=== PATIENT | male | born 2000 | race Caucasian/White ===

== ENCOUNTER 2023-10-27 01:10 | Day surgery (SDC) | payer OTHER, SELFPAY ==
[2023-10-18 14:14] VITALS: BMI 26.8
--- NOTE | 2023-10-18 14:30 | PC.NURSE ---
Report to the Outpatient Waiting Room, entrance under the green pavilion located off [facility], at time _0730 on date _10/27/23 . Planned Procedure Time: __929 . Time changes happen often and if your time is changed the preop area will call you the afternoon before. - You and your visitor will be asked to self-screen and do not enter if you have any COVID symptoms. - A mask is optional within the hospital at this time. Patients may have clear liquids (water, carbonated beverages, clear teas, apple juice) until 3 hours prior to surgery with a maximum of 20 ounces. - No food from midnight until time of surgery DO NOT TAKE ANY MEDS ON THE MORNING OF SURGERY DO NOT STOP ANY OF YOUR OTHER PRESCRIPTION MEDICATIONS PRIOR TO SURGERY ?EXCEPT THE FOLLOWING Medications to discontinue per physician NONE Date to take last dose NONE Please no make-up, nail gabonese, hairspray, perfume, deodorant, or body powder the day of surgery. No jewelry (including any body piercings) or valuables the day of surgery, leave them at home. Please take a shower or bath the night before, or the morning of, surgery with an antibacterial soap. Wear comfortable, loose fitting clothing. - Jewelry must be removed prior to entering the operating room. Rings and piercings that are not removed may be cut off. - The hospital will not accept responsibility for valuables. - Please leave all valuables, including medications, at home the day of surgery. If you are going home after surgery, a licensed telephone directory distributor driver must drive you home. - NO public transportation without another adult if you receive anesthesia. - We recommend that an adult stay with you for 24 hours following discharge. - We also recommend that you do not drive, make important decision, drink alcoholic beverages, or take any drugs that were not prescribed by your health care provider for at least 24 hours after your discharge time. Follow any additional instructions given to you from your surgeon. If you or anyone in your household have experienced Covid symptoms in the past week, please notify your surgeon or the nurse liaison at the phone number below for possible testing. Telephone instructions given to ___JACK and asked if any additional questions and then verbalized understanding. Patient advised to call surgeon office or pre surgery nurse liaison [phone] if any additional questions.
--- NOTE | 2023-10-26 12:12 | P.PNAN_ITS ---
Anes - Initial Pre Proc Eval Procedure: Operation Date: 10/27/23 09:30 Proposed Procedures p Circumcision Revision - Musa Metzger MD Date/Time: 10/26/23 12:12 Surgeon: Musa Metzger MD Pre Op Diagnosis: phimosis Patient Data Age: 22 Gender: M Height: 1.73 m Weight: 80 kg Allergies Allergy/AdvReac Type Severity Reaction Status Date / Time No Known Allergies Allergy Verified 10/18/23 14:27 Home Medications Medication Instructions Recorded Confirmed Type fexofenadine 180 mg tablet 180 mg PO DAILY 10/18/23 10/18/23 History (Allergy Relief (fexofenadine)) glycopyrrolate 2 mg tablet 2 mg PO DAILY 10/18/23 10/18/23 History Patient hx anesthesia problems: none Family hx anesthesia problems: none Results Review: All pre-operative results and documents have been reviewed as part of the pre- operative evaluation. FORMERLY [facility], [facility] Past Medical History Medical History (Updated 10/27/23 @ 08:40 by Alex Guido DO) Seasonal allergies Social History Social History Smoking status: Never smoker Alcohol intake: never Substance use: never Substance use type: does not use Living arrangements: alone Spiritual care concerns: No Anes - Eval Final PreProcedure Day of Procedure 10/26/23 12:12 Patient weight: overweight Heart: regular rate and rhythm Lungs: clear to auscultation Airway: Mallampati scale class II Neurological: alert and oriented Last oral intake: >/= 8 hours ASA classification: II Emergent: no Anesthetic plan: proceed Anesthesia type and monitoring: general LMA and standard monitoring Results Review: All pre-operative results and documents have been reviewed as part of the pre- operative evaluation. Informed Consent: The patient's anesthetic plan and its attendant risks and benefits were discussed with the patient/family/POA. Questions were solicited and answers pro vided to the satisfaction of the patient/family/POA.
[2023-10-27] VITALS (8 sets, daily range): BP systolic 105–139; BP diastolic 40–63; PULSE 69–101; RESP 12–16; TEMP 36.1–36.2; O2SAT 97–100
--- NOTE | 2023-10-27 06:16 | WPDHPUPDATE1 ---
History and Physical Update Update Date/Time: 10/27/23 06:16 History and Physical has been reviewed, including an updated exam of the patient. There are NO changes in the patient's condition. Risks, benefits, and alternatives have been discussed and questions answered. Patient agrees to proceed with procedure.
[2023-10-27] MEDS: LACTATED RINGERS 1,000 ML 30 ML IV CONT ×2 (08:00→09:54)
[2023-10-27] MEDS: ceFAZolin 2 GM/D5W 50 ML 2 GM/50 ML BAG IVPB (09:02)
[2023-10-27] MEDS: NEOMYCIN/POLYMYXIN/BACITRACIN OINTMENT 15 GM TUBE 1 APPLIC TOPICAL (09:45)
--- NOTE | 2023-10-27 09:52 | P.OP_ITS ---
Procedure Note - Detailed Date of Procedure 10/27/23 Pre-op Diagnosis Redundant penile shaft skin Post-op Diagnosis Same Procedure Performed Circumcision revision Surgeon Musa Metzger MD Anesthesia General Description of Procedure The patient is brought to the operative suite areas prepped and draped in a r outine sterile fashion while in a supine position. The lines of circumcision revision are outlined using a sterile marking pen - aiming for excision of redundant ventral penile shaft skin and preservation of vental skin. 2 semi- circumferential circumcising incisions were made and carried down to Colle's fascia. The penile foreskin is excised. Hemostasis is obtained with electric cautery. The edges of the penile skin reapproximated using a combination of running and interrupted 4-0 chromic. A penile block is administered at the base of the penis with 0.25% bupivacaine. The patient was taken to the recovery room in good condition. EBL was approximately 10cc. Drains No Pathology Yes
== END 2023-10-27 11:23 | disposition home or self-care (01) ==
PROVIDERS: PCP Pediatrics; Visit Provider Urology
PROC: (CPT 54161; principal; 2023-10-27 09:30)
DX: N48.89 Other specified disorders of penis (principal); N47.1 Phimosis
CPT/HCPCS: 54161; 88304; A9270; J0690; J1100; J2250; J2405; J2704; J3010; J7120